=== PATIENT | male | born 1960 | race Caucasian/White ===

== ENCOUNTER 2019-12-01 11:06 | Emergency (ER) | payer OTHER ==
[~2019-12-01] VITALS: Ht 172.7 cm; Wt 59.0 kg
[2019-12-01] MEDS ORDERED: Floxin10 ML RIGHTEAR (11:19)
== END 2019-12-01 11:17 | disposition home or self-care (01) ==
LOC: ER 11:06
DX: H60.91 Unspecified otitis externa, right ear (principal); H61.21 Impacted cerumen, right ear; F17.210 Nicotine dependence, cigarettes, uncomplicated
CPT/HCPCS: 99282

== ENCOUNTER 2022-04-08 08:33 | Emergency (ER) | payer MEDICAID ==
[~2022-04-08] VITALS: Ht 172.7 cm; Wt 59.0 kg
[~2022-04-08 08:33] MED LIST: Floxin10 ML RIGHTEAR
== END 2022-04-08 09:35 | disposition home or self-care (01) ==
LOC: ER 08:33
DX: J02.9 Acute pharyngitis, unspecified (principal); H61.21 Impacted cerumen, right ear; F17.210 Nicotine dependence, cigarettes, uncomplicated
CPT/HCPCS: 99282; J1100